=== PATIENT | female | born 1990 | race African-American/Black ===

== ENCOUNTER 2021-03-21 10:41 | Outpatient (CLI) | payer OTHER | END 2021-03-21 10:42 | disposition home or self-care (01) | LOC: CSHULT 10:41 | PROVIDERS: ATTEND Family Medicine | DX: O09.892 Supervision of other high risk pregnancies, second trimester (principal); Z3A.20 20 weeks gestation of pregnancy | CPT/HCPCS: 76805 ==

== ENCOUNTER 2021-07-27 09:46 | Outpatient (CLI) | payer OTHER ==
[2021-07-27 14:27] LABS: Hemoglobin 11.2 g/dL (12.0-15.5); Mean Corpuscular HGB CONC 31.5 g/dL (32.0-36.0); Mean Corpuscular Hemoglobin 23.8 pg (27.0-33.0); Mean Corpuscular Volume 75.7 fl (81.6-98.3); Platelet Count 207 10x3/uL (150-450); RBC Distribution Width 16.7 % (11.5-14.5); White Blood Cell (WBC) Count 6.3 10x3/uL (3.5-10.5)
[2021-07-27 15:26] LABS: Hep B Surf Ag Non-Reactive S/CO (NonReactive)
[2021-07-27 15:32] LABS: HBSAg Index 0.14 S/CO (0-0.99)
[2021-07-27 16:25] LABS: Syphilis Antibody Nonreactive (Nonreactive); Syphilis Antibody Index 0.04 S/CO (<1.00 Non-Reactive)
== END 2021-07-27 09:47 | disposition home or self-care (01) ==
LOC: CSHLAB 09:46
PROVIDERS: ATTEND Family Medicine
DX: Z01.812 Encounter for preprocedural laboratory examination (principal); Z20.822 Contact with and (suspected) exposure to COVID-19; O34.219 Maternal care for unspecified type scar from previous cesarean delivery
CPT/HCPCS: 85027; 86780; 86900; 86901; 87340; U0003; U0005

== ENCOUNTER 2021-07-31 07:30 | Inpatient (IN) | payer OTHER ==
[2021-07-31] MEDS ORDERED: Bicitra 30 ML UDCUP PO PRN (15:41)
[2021-07-31] MEDS ORDERED: Ondansetron PF 4 MG/2 ML Vial IVP PRN ×3 (15:41→20:58)
[2021-07-31] MEDS ORDERED: Famotidine/PF 20 mg/2ml Vial SLOW IVP PRN (15:41)
[2021-07-31] MEDS ORDERED: hydrALAZINE 20 MG/ML VIAL SLOW IVP PRN ×2 (15:41→20:58)
[2021-07-31] MEDS ORDERED: Lactated Ringer's 1,000 ML IV SCH (15:41)
[2021-07-31] MEDS ORDERED: Promethazine HCl 25 MG/ML VIAL IM PRN ×2 (15:41→17:45)
[2021-07-31 15:53] VITALS: BMI 48.4
[2021-07-31] MEDS ORDERED: CEFAZOLIN 2 GM in Sodium Chloride 0.9% 100 ML IVPB SCH (16:00)
[2021-07-31] MEDS ORDERED: CEFAZOLIN 1 GM in Sodium Chloride 0.9% 100 ML IVPB SCH (16:30)
[2021-07-31] MEDS ORDERED: Oxytocin 10 UNITS/ML VIAL ONE ×2 (17:15→17:48)
[2021-07-31] MEDS ORDERED: Morphine PF 10 MG/10 ML VIAL ONE (17:16)
[2021-07-31] MEDS ORDERED: Dexamethasone 4 mg/ml Vial ONE (17:16)
[2021-07-31] MEDS ORDERED: Ondansetron PF 4 MG/2 ML Vial ONE (17:16)
[2021-07-31] MEDS ORDERED: Moisturizing Cream (Eucerin) 113 GM JAR TOP PRN (17:45)
[2021-07-31] MEDS ORDERED: Promethazine HCl 25 MG SUPP PR PRN (17:45)
[2021-07-31] MEDS ORDERED: Communication Order-Pharmacy FS SCH ×2 (17:45)
[2021-07-31] MEDS ORDERED: Naloxone HCl 0.4 mg/ml Vial IVP PRN ×2 (17:45)
[2021-07-31] MEDS ORDERED: diphenhydrAMINE 50 MG/ML VIAL IVP PRN (17:45)
[2021-07-31] MEDS ORDERED: Naloxone HCl 0.4 mg/ml Vial IV PRN (17:45)
[2021-07-31] MEDS ORDERED: Ketorolac Tromethamine 30 MG/ML VIAL IVP PRN (17:45)
[2021-07-31] MEDS ORDERED: Ondansetron HCl/PF 4 MG/2 ML Vial IVP PRN (17:46)
[2021-07-31] MEDS ORDERED: Meperidine HCl/PF 25 MG/ML VIAL SLOW IVP PRN (17:46)
[2021-07-31] MEDS ORDERED: Fentanyl 100 MCG/2 ML VIAL SLOW IVP PRN (17:46)
[2021-07-31] MEDS ORDERED: Ketorolac Tromethamine 30 MG/ML VIAL IVP SCH (18:00)
[2021-07-31] MEDS ORDERED: Boostrix 0.5 ML (Tdap) VIAL IM ONE (20:58)
[2021-07-31] MEDS ORDERED: Bisacodyl 10 MG SUPP PR PRN (20:58)
[2021-07-31] MEDS ORDERED: HYDROcodone/Acetaminophen 5/325 mg Tablet PO PRN ×2 (20:58)
[2021-07-31] MEDS ORDERED: Simethicone Chewable 80 MG TAB PO PRN (20:58)
[2021-07-31] MEDS ORDERED: Lanolin Ointment 7 GM TUBE TOP PRN (20:58)
[2021-07-31] MEDS ORDERED: diphenhydrAMINE 25 MG CAP PO PRN (20:58)
[2021-07-31] MEDS: Ketorolac Tromethamine 30 MG/ML VIAL IVP SCH (23:40)
[2021-08-01] MEDS: Ferrous Sulfate 325 MG TAB PO SCH ×3 (02:07→21:36)
[2021-08-01] MEDS: Docusate 100 MG CAP PO SCH ×3 (02:07→21:35)
[2021-08-01 04:00] LABS: Hemoglobin 9.9 g/dL (12.0-15.5); Mean Corpuscular HGB CONC 31.8 g/dL (32.0-36.0); Mean Corpuscular Hemoglobin 24.2 pg (27.0-33.0); Mean Platelet Volume 10.2 fl (7.4-10.4); Platelet Count 200 10x3/uL (150-450); RBC Distribution Width 16.7 % (11.5-14.5); Red Blood Cell (RBC) Count 4.09 10x6/uL (3.90-5.03); White Blood Cell (WBC) Count 9.7 10x3/uL (3.5-10.5)
[2021-08-01] MEDS ORDERED: HYDROcodone/Acetaminophen 5/325 mg Tablet PO PRN ×2 (05:45)
[2021-08-01] MEDS: Ketorolac Tromethamine 30 MG/ML VIAL IVP SCH ×3 (05:56→18:25)
[2021-08-01] MEDS ORDERED: cloNIDine 0.1 MG TAB PO PRN (08:27)
[2021-08-01] MEDS: NIFEdipine XL 30 MG TAB PO SCH (09:18)
[2021-08-01] MEDS: Prenatal Vitamin 1 TAB PO SCH (09:18)
[2021-08-01] MEDS ORDERED: Ibuprofen 800 MG TAB PO SCH (22:00)
[2021-08-02] MEDS: Ibuprofen 800 MG TAB PO SCH ×3 (01:01→17:01)
[2021-08-02] MEDS: Ferrous Sulfate 325 MG TAB PO SCH (09:23)
[2021-08-02] MEDS: Docusate 100 MG CAP PO SCH (09:23)
[2021-08-02] MEDS: Prenatal Vitamin 1 TAB PO SCH (09:23)
[2021-08-02] MEDS: NIFEdipine XL 30 MG TAB PO SCH (09:23)
[2021-08-02 16:46] VITALS: BP 121/68; TEMP 97.9
== END 2021-08-02 17:45 | disposition home or self-care (01) | DRG 788 ==
LOC: CSHLD 14:43 → CSHPP 21:30
PROVIDERS: ADMIT Family Medicine; ATTEND Family Medicine
PROC: 10D00Z1 Extraction of Products of Conception, Low, Open Approach (ICD-10-PCS; principal; 2021-07-31)
DX: O34.211 Maternal care for low transverse scar from previous cesarean delivery (principal); Z3A.39 39 weeks gestation of pregnancy; Z37.0 Single live birth; O99.214 Obesity complicating childbirth; E66.9 Obesity, unspecified
CPT/HCPCS: 51702; 85027; 86850; 86900; 86901; J1100; J1200; J1885; J2274; J2405; J2590; S0028